=== PATIENT | male | born 1940 | race Caucasian/White ===

== ENCOUNTER 2019-03-02 13:49 | Observation (INO) | payer OTHER ==
[~2019-03-02] VITALS: Ht 175.3 cm; Wt 74.4 kg
[~2019-03-02 13:49] MED LIST: ALBU90I INH; ASPI325EC PO; FISH1000 PO; GEMF600 PO; Glucophage1000 MG PO; LISI10 PO; LOVA40 PO; METF500 PO; NIAC500 PO; TIOT18 INH; TRIHYD253A PO
[2019-03-02 14:25] LABS: BASOPHILS ABSOLUTE AUTO 0.01 K/mm3 (0.00-0.23); BASOPHILS PERCENT AUTO 0 % (0-2); EOSINOPHILS ABSOLUTE AUTO 0.04 K/mm3 (0.00-0.68); EOSINOPHILS PERCENT AUTO 0 % (0-6); Hematocrit 44.9 % (37.0-53.0); Hemoglobin 14.8 g/dL (13.5-17.5); IMMATURE GRAN ABSOLUTE AUTO 0.11 K/mm3 (0.00-0.10); IMMATURE GRAN PERCENT AUTO 1 % (0-1); LYMPHOCYTES ABSOLUTE AUTO 0.22 K/mm3 (0.84-5.20); LYMPHOCYTES PERCENT AUTO 2 % (21-46); MONOCYTES ABSOLUTE AUTO 0.63 K/mm3 (0.16-1.47); MONOCYTES PERCENT AUTO 5 % (4-13); Mean Corpuscular Volume 94 fL (80-100); NEUTROPHILS ABSOLUTE AUTO 13.12 K/mm3 (1.96-9.15); NEUTROPHILS PERCENT AUTO 93 % (41-73); RDW Coefficient Variation 15.9 % (11.7-14.2); RDW Standard Deviation 54.6 fL (35.1-46.3); Red Blood Cell Count 4.78 M/mm3 (4.30-5.90); White Blood Cell Count 14.13 K/mm3 (4.00-11.30)
[2019-03-02] MEDS ORDERED: LISI20 PO (14:26)
[2019-03-02] MEDS ORDERED: Metformin HCl1000 MG PO (14:26)
[2019-03-02] MEDS ORDERED: INCRUSE ELLI62.5 MCG INH (14:26)
[2019-03-02] MEDS ORDERED: LOVASTATIN40 MG PO (14:26)
[2019-03-02] MEDS ORDERED: TAMS.4ER PO (14:27)
[2019-03-02] MEDS ORDERED: PROAIR DIGIHAL90 MCG INH (14:27)
[2019-03-02] MEDS ORDERED: GABA300 PO (14:28)
[2019-03-02] MEDS ORDERED: NIAC500 PO (14:28)
[2019-03-02] MEDS ORDERED: DEXA4 PO (14:28)
[2019-03-02] MEDS ORDERED: OXYC5 PO (14:29)
[2019-03-02 14:54] LABS: Alanine Aminotransfer (ALT/SGP 26 U/L (12-78); Albumin, Blood 2.7 g/dL (3.4-5.0); Albumin/Globulin Ratio 0.8 (0.8-1.8); Alk Phos 87 U/L (50-136); Anion Gap 7 mmol/L (6-16); Aspartate Aminotrans (AST/SGOT 29 U/L (12-37); Bilirubin, Total 0.8 mg/dL (0.1-1.0); Blood Urea Nitrogen 37 mg/dL (8-24); Bun/Creatinine Ratio 39.2 (12.0-20.0); CO2, Blood 27 mmol/L (21-32); Calcium, Blood 8.4 mg/dL (8.5-10.1); Chloride, Blood 102 mmol/L (98-108); Creatinine, Blood 0.95 mg/dL (0.60-1.20); Globulin, Blood 3.4 g/dL (2.2-4.0); Glomerular Filtration Rate >60 (60-); Glucose, Blood 141 mg/dL (70-99); Potassium, Blood 4.6 mmol/L (3.5-5.5); Sodium, Blood 136 mmol/L (136-145); Total Protein, Blood 6.1 g/dL (6.4-8.2)
[2019-03-02 15:12] LABS: Mean Platelet Volume 11.9 fL (9.1-12.4); Platelet Count 69 K/mm3 (150-400)
[2019-03-02 15:15] LABS: Source, Urine Catheter
[2019-03-02 16:11] LABS: Bilirubin, Urine Neg (Neg); Blood, Urine Neg (Neg); Glucose Qualitative, Urine Neg (Neg); Ketones, Urine 1+ (Neg); Leukocyte Esterase, Urine 1+ (Neg); Nitrite, Urine Neg (Neg); Protein, Urine 3+ (Neg); Urobilinogen, Urine NORM (Normal)
[2019-03-02] MEDS ORDERED: Vitamin D2000 UNIT PO (16:15)
[2019-03-02] MEDS ORDERED: B Complex-Foli1 EACH PO (16:15)
[2019-03-02] MEDS ORDERED: OXYCODONE HCL E10 MG PO (16:17)
[2019-03-02] MEDS ORDERED: Co Q-10300 MG PO (16:19)
--- NOTE | 2019-03-02 16:22 | NUR ---
ED Palliative Care Consult for Goals of Care. Spoke with Dr Obrien and discussed case. Pt has Stage IV Lung Cancer with [place] to brain and spine. Pt and family would benefit from Palliative Care visit. Pt is resting on gurney upon arrival. He reports significant pain in his abdomen and back. Significant anxiety noted with pain possibly contributing towards anxiety. Pt's Andra, sister in law Bartolome, and family friend present during visit. Engaged in therapeutic discussion regarding goals of care. Listened as reports Pt has been significantly declining over the last couple of weeks. reports Pt is chair bound and requires 2 people to lift him and transfer him to a chair. Pt is incontinent of bowel and bladder. Pt also requires assistance with bathing and dressing. Engaged in therapeutic discussion regarding hospice as an option. Pt and express interest. Educated on hospice philosophy with V/U made by Pt and . Pt reports know longer wanting to suffer and wants to focus on comfort. Discussed comfort care whil in the hospital. Educated on comfort care philosophy with V/U made by Pt and . Pt and agreeable for Pt to be admitted on comfort care. and Pt would like hospice agency that can admit Pt on to services the soonest. No other concerns reported at this time. Discussed Pt and family's wishes with Dr Obrien. Dr Obrien agreeable with plan. Discussed case with admitting hospitalist Dr No. Dr No will admit Pt on comfort care and place orders. POLST completed and signed by Dr Obrien. Faxed copy to medical records. Gave original POLST back to and instructed to take home with her. Will place copy of POLST in Pt's chart. Spoke with [facility]. [facility] first availabilty is . Spoke with Yu at [facility]. [facility] can admit Pt onto service as soon as tomorrow. Spoke with Carri Martin and discussed case. Relayed information regarding availabilities and Pt's wishes for agency with the first availability. Pt will need hospital bed, BSC, and table delivered prior to Pt being discharged home. Palliative Care will remain available for symptom management.
[2019-03-02 16:31] LABS: Appearance, Urine Clear (Clear); Color, Urine Yellow (P-Yellow)
[2019-03-02 16:32] LABS: Bacteria Few /hpf; Red Blood Cells, Urine 0-2 /hpf (0-2); Squamous Epithelial Cells Not Seen /hpf (Few); White Blood Cells, Urine 0-2 /hpf (0-5)
--- NOTE | 2019-03-02 16:44 | NUR ---
Late Entry from Initial Visit. Andra's phone number [phone]. PPS 30% [place] 30% ADLs 5/6 Pt wishes to avoid future hospitalizations and does not want to continue with treatment of his cancer. Pt appears appropriate for hospice and is agreeable to home with hospice upon discharge of hospital.
--- NOTE | 2019-03-02 17:58 | NUR ---
PATIENT IS SLEEPING IN BED. HE HAS BEEN SLEEPING SINCE HE ARRIVED TO THE UNIT. NO FAMILY IS AT THE BEDSIDE. ELEVATED THE HEAD OF THE BED BECAUSE SECRETIONS.
--- NOTE | 2019-03-02 22:07 | NUR ---
COMFORT CARE PT RESTING IN BED AT THIS TIME. RESP E/U, DOES NOT APPEAR TO BE IN ANY DISTRESS OR PAIN. HOUSE CATH DRAINING. REPOSITIONED.
--- NOTE | 2019-03-03 05:41 | NUR ---
SHIFT SUMMARY COMFORT CARE STATUS MAINTAINED. PT WAS ASLEEP MOST OF SHIFT, WOKE UP EARLY THIS AM. COUGHING AND HAS EXCESS SECRETIONS, ATROPINE DROPS ORDERED. PT IS ALERT, MOSTLY ORIENTED. REQUESTING TO BE TURNED AND SAT UP. TURNED PT TO L SIDE, REQUESTED TO BE TURNED TO OTHER SIDE. GAVE SUBLINGUAL ROXICODONE ONCE AND IV ATIVAN ONCE, PROVIDES THERAPEUTIC EFFECT. WILL CONT TO MONITOR AND PROVIDE CARE UNTIL PRESUMED BY ONCOMING RN.
--- NOTE | 2019-03-03 08:01 | NUR ---
PT IN NO APPARENT DISTRESS. NO DYSPNEA/SOB; SECRETIONS SUCTIONED. HOUSE FLUSHED c 20ML NS; OUTPUT RED c SEVERAL SMALL CLOTS. NO FAMILY MEMBERS PRESENT. WCTM.
--- NOTE | 2019-03-03 09:06 | NUR ---
Comfort Care Visit: Pt resting in bed with his eyes closed. He awkens easily with soft voice and gentle touch. Pt reports being comfortable. Pt quickly closes his eyes. No S/S of distress at this time. Spoke with Caremanager Veronica and discussed case. Palliative Care will remain available for symptom management.
--- NOTE | 2019-03-03 09:43 | NUR ---
0940: 650 ML'S DRAINED FROM PT'S F/C. APPEARS TO HAVE RED CLOTS DRAINING.
--- NOTE | 2019-03-03 11:14 | NUR ---
PT IN NO APPARENT DISTRESS. NO DYSPNEA/SOB/SECRETIONS. FAMILY IN ROOM. WCTM.
--- NOTE | 2019-03-03 11:15 | NUR ---
NO S/S PAIN. MEDICATED FOR ANXIETY PER EMAR. FAMILY IN ROOM. WCTM.
--- NOTE | 2019-03-03 12:59 | NUR ---
1300 ORAL CARE AND F/C COMPLETED BY EMERGENCY MANAGEMENT DIRECTOR. PT REFUSING FURTHER PERSONAL CARE AT THIS TIME. HOB ELEVATED; PT APPEARS COMFORTABLE. BED AT LOWEST POSITION WITH BED ALARM ON.
--- NOTE | 2019-03-03 13:35 | NUR ---
PT IN NO APPARENT DISTRESS. NO DYSPNEA/SOB/SECRETIONS. NO FAMILY IN ROOM. WCTM.
--- NOTE | 2019-03-03 13:36 | NUR ---
PT IN NO APPARENT DISTRESS. MEDICATED FOR EXCESSIVE SECRETIONS PER EMAR. NO DYSPNEA/SOB. NO FAMILY PRESENT. WCTM.
--- NOTE | 2019-03-03 15:05 | NUR ---
MEDICATED FOR PAIN PER EMAR. NO DYSPNEA/SOB/SECRETIOPNS. NO FAMILY PRESENT. WCTM.
--- NOTE | 2019-03-03 15:11 | NUR ---
1445: PARTIAL BED BATH WITH LINEN CHANGE. PT HAD XLARGE SOFT BM. ATTEND CHANGE, LINEN CHANGE, SKIN CARE, CATH CARE COMPLETED. RN PLACED MEPILEX TO COCCYX. PT TURNED TO RIGHT SIDE. BED IN LOWEST POSITION, BED ALARM ON.
--- NOTE | 2019-03-03 18:03 | NUR ---
PT IN NO APPARENT DISTRESS. NO DYSPNEA/SOB/SECRETIONS. FAMILY PRESENT IN ROOM. WCTM.
--- NOTE | 2019-03-03 18:05 | NUR ---
Spiritual Care initial note: I met with Dennys's (Abe) cousin at bedside this afternoon. Abe was restless, anxious, and complained of pain. Informed RN immediately. Medication given. Provided theraputic listening to family who expressed concerns for Abe's comfort. Asked Aron with Palliative Care to review medications. Family expects to take Abe home tomorrow. They are at peace with his passing and just want him comfortable. Listened to stories about Abe's past and provided anticipatory bereavement counselor supervisor to good effect. Pt and family non-jehovah's witness, but responded well to being heard and affirmed. I will remain available.
--- NOTE | 2019-03-03 19:15 | NUR ---
Spoke with Palliative Care Tipple Supervisormagnolia Alcala and discussed case. Pt is experiencing discomfort and would benefit from Palliative Care RN visit. Pt resting in bed with his eyes closed upon arrival. Andra is at bedside and is tearful. Offered emotional support. Pt appears agitated as evidenced by intermittent waking and flailing of upper extremities and shaking of head. Discuss the use of haloperidol with and she is agreeable. Spoke with both day and car shifter bedside RNs discussed case and reviewed comfort medications. Nurses agreeable with offering haloperidol for comfort. Called and spoke with Dr Horn. Placed order for haloperidol per V/O from Dr Horn. Palliative Care will remain available.
--- NOTE | 2019-03-03 19:20 | NUR ---
SHIFT SUMMARY: NO ACUTE CAHNGES TO REPORT THIS SHIFT. PT HAS METASTATIC CA & HAS DECLINED FURTHER TREATMENTS; COMFORT CARE MEASURES IN EFFECT. MEDICATED FOR PAIN, ANXIETY, & SECRETIONS PER EMAR. AGITATION INCREASING; ADDITIONAL ANXIOLYTIC ORDERED THIS SHIFT. HOUSE IN PLACE FOR COMFORT; PATENT & DRAINING. EXPECTED D/C HOME WITH HOSPICE TOMORROW 03/04. REPORT GIVEN TO ONCOMING RN.
--- NOTE | 2019-03-04 03:17 | NUR ---
Patient was restless and agitated after changing his breif due to a BM. Haldol administered per emar. He also sounded like he was accumulating secretions and atropine was administered per emar.
--- NOTE | 2019-03-04 03:26 | NUR ---
Patient pulled out his IV shortly after PRN Haldol administration d/t agitation. He has calmed down and now appears to be sleeping comfortably. New IV started for [id number] medications. He was awake to acknowlege that an IV would be placed, then he slept through IV placement.
--- NOTE | 2019-03-04 04:18 | NUR ---
Patient appears to be sleeping comfortably.
--- NOTE | 2019-03-04 05:14 | NUR ---
Patient was heard coughing with secretions. He also appeared somewhat axious. He was assisted to reposition for comfort and PRN Atropine and lorazepam were administered
--- NOTE | 2019-03-04 05:36 | NUR ---
Shift Summary Patient slept well overall. He awoke twice with restlessness, but repositioning and PRN anxiolytics were effective. He has had on occasional moist cough, for which Atropine was administered. His cough does seem strong, and he seems to be clearing secretions somewhat effectively.
[2019-03-04] MEDS ORDERED: MORP20L SL (08:31)
[2019-03-04] MEDS ORDERED: PROC25S PR (08:31)
[2019-03-04] MEDS ORDERED: ONDA4ODT MM (08:32)
[2019-03-04] MEDS ORDERED: Transderm-Scop1 EACH TD (08:32)
[2019-03-04] MEDS ORDERED: Ativan1 MG PO (08:33)
--- NOTE | 2019-03-04 09:16 | NUR ---
DISCHARGE PT DISCHARGED TO HOME ON HOSPICE. IV REMOVED AND PAIN MEDICATION ADMINISTERED FOR COMFORT DURING TRANSPORTATION. PT TRANSFERRED TO HOME VIA GURNEY. PT HAD NO BELONGINGS. CATHETER IN PLACE. INSTRUCTOR PHYSICAL NOTIFIED FAMILY OF TIME OF DISCHARGE.
== END 2019-03-04 09:07 | disposition home or self-care (01) ==
LOC: ER 13:49 → MEDS 13:50 → ENPENDDIS 03-04 07:49 → MEDS 03-04 09:07
PROVIDERS: Emergency Medicine; ADMIT Hospitalist
DX: C34.90 Malignant neoplasm of unspecified part of unspecified bronchus or lung (principal); C79.51 Secondary malignant neoplasm of bone; R77.8 Other specified abnormalities of plasma proteins; E11.9 Type 2 diabetes mellitus without complications; E78.5 Hyperlipidemia, unspecified; G83.9 Paralytic syndrome, unspecified; E78.00 Pure hypercholesterolemia, unspecified; J43.9 Emphysema, unspecified; Z66 Do not resuscitate; Z51.5 Encounter for palliative care; Z88.8 Allergy status to other drugs, medicaments and biological substances; Z79.84 Long term (current) use of oral hypoglycemic drugs; Z79.82 Long term (current) use of aspirin; Z79.51 Long term (current) use of inhaled steroids; Z79.899 Other long term (current) drug therapy; Z87.891 Personal history of nicotine dependence
CPT/HCPCS: 36415; 51702; 71046; 80053; 81001; 84484; 85025; 87086; 93005; 93010; 96361-59; 96374-59; 96375; 96375-59; 96376; 99285-25; G0378; J1630; J2060; J7120